=== PATIENT | female | born 1995 | race Caucasian/White ===

== ENCOUNTER 2018-10-02 09:42 | Emergency (ER) | payer OTHER ==
[~2018-10-02] VITALS: Ht 165.1 cm; Wt 104.5 kg
[~2018-10-02 09:42] MED LIST: FER325 PO; PRENAT PO
[2018-10-02 10:06] VITALS: BP 125/57; PULSE 75; RESP 16; Ht 165.1 cm; Wt 104.5 kg
[2018-10-02] MEDS ORDERED: LORAZEPAM 1 MG TAB PO ONE (11:30)
--- NOTE | 2018-10-02 15:00 | ERD ---
ER Documentation Chief Complaint Chief Complaint INTERMITTENT TINGLING BACK OF HEAD, DIZZINESS, BLURRED VISION, FREQUENT [place] HPI 23-year-old female patient with no significant past medical history with no significant past medical history presents to ED complaining of a tingling sensation in the back of her head, dizziness, intermittent blurred vision, headaches that were gradual onset since March. Denies any head or neck injuries. Denies any fever, chills, nausea, vomiting, diarrhea, neck stiffness. ROS All systems reviewed and are negative except as per history of present illness. Medications Home Meds Reported Medications Ferrous Sulfate* (Ferrous Sulfate*) 325 Mg Tabec, 325 MG PO DAILY, TAB 06/04/14 Multivit/Min/Fol Ac/Iron/Pren* ( S*) 1 Tab Tab, 1 TAB PO DAILY, TAB 05/19/14 Allergies Allergies: Coded Allergies: No Known Allergy (Unverified , 10/02/18) PMhx/Soc Medical and Surgical Hx: pt denies Medical Hx, pt denies Surgical Hx Hx Alcohol Use: No Hx Substance Use: No Hx Tobacco Use: No Smoking Status: Never smoker FmHx Family History: No diabetes, No coronary disease, No other Physical Exam Vitals Vital Signs Date Temp Pulse Resp B/P (MAP) Pulse Ox O2 O2 Flow FiO2 Time Delivery Rate 10/02/18 98.1 75 16 125/57 98 10:06 (79) Physical Exam Const: Vhl-oog-wekuwvrpf, well-nourished. In no acute distress. Head: Atraumatic, normocephalic. No hematoma. No davidson sign. Eyes: Normal Conjunctiva without injection. No purulent discharge. PERRLA. EOMI ENT: Normal external ear. Ear canal without erythema. Tympanic membrane pearly jiménez without effusion or bulging. No hemotympanum. Nasal canal clear with normal turbinates. Moist oropharynx without tonsillar exudates. Non-erythematous pharynx. Uvula midline. No drooling. No trismus. Neck: No cervical midline tenderness. Full range of motion. No meningismus. No cervical lymphadenopathy. No JVD. Resp: Clear to auscultation bilaterally. No wheezing, rhonchi, rales, or crackles. No accessory muscle use. No retractions. Cardio: Regular rate and rhythm. No murmurs, rubs or gallops. Abd: Soft, non tender, non distended. Normal bowel sounds. No palpable masses. No rebound tenderness. No guarding. Negative McBurney's Point. Negative Cox's Sign. Skin: Normal skin turgor. No petechiae or rashes Back: No midline tenderness. No CVA tenderness. Ext: No cyanosis, or edema. Distal pulses intact bilaterally. Neur: Awake and alert. Normal gait. Normal coordination. Cranial Nerves II- VII intact. Normal finger to nose. Muscle strength 5/5. Sensation intact. Psych: Normal Mood and Affect Results 24 hrs Laboratory Tests Test 10/02/18 11:38 10/02/18 11:39 10/02/18 11:46 Bedside Urine pH (LAB) 6.5 Bedside Urine Protein (LAB) Negative Bedside Urine Glucose (UA) Negative Bedside Urine Ketones (LAB) Negative Bedside Urine Blood 2+ Bedside Urine Nitrite (LAB) Negative Bedside Urine Leukocyte Esterase (L Negative POC Beta HCG, Qualitative NEGATIVE Bedside Glucose 117 mg/dL Current Medications Medications Dose Sig/Tanesha Start Time Status Last (Trade) Ordered Route PRN Stop Time Admin Dose Reason Admin Lorazepam 1 mg ONCE ONCE 10/02/18 DC (Ativan) PO 11:30 10/02/18 11:31 Procedures/MDM 23-year-old female patient with no significant past medical history presents the ED complaining of numbness and tingling in the back of her head, dizziness, intermittent blurred vision, headaches. Patient is afebrile and nontoxic- appearing. 117 Accucheck. Negative urine . No Leukocyte esterase, hematuria, nitrite noted. EKG reviewed and interpreted by Dr. Van Rate/Rhythm: [69 bpm, Normal Sinus Rhythm] No ectopy, no ST elevations, normal axis. QRS, ST, T-waves: [No changes consistent w/ acute ischemia] Impression: [No evidence of ischemia or arrhythmia] Visual acuity 20/50 left 20/40 right bilateral 20/40 Differentials include anxiety. Low suspicion for shingles, acute myocardial infarction, pneumothorax, pneumonia, cardiac tamponade, Tcmdc-Ucwcrteki-Onurh Syndrome, Brugada Syndrome, pulmonary embolism, AAA, aortic dissection, thoracic aortic dissection, endocarditis, myocarditis, pericarditis, cocaine-related ischemia, Boerhaave's syndrome, cardiac dysrhythmias,meningitis, intracranial bleed, seizure, stroke, TIA or other emergent conditions. CT was discussed with the patient, she stated that she will follow-up with her primary care physician for a neurology follow-up. Low suspicion for intra cranial bleed, subarachnoid hemorrhage, meningitis, TIA, stroke, subdural hematoma epidural hematoma, or other emergent conditions. Diagnosis: Dizziness, Headache Discharge medications: Ferrous sulfate Instructed parent to bring patient to follow up with contracting analyst in 1-2 days. Instructed parent to bring patient back to the ED sooner for any worsening symptoms. Parent's questions were answered. Parent understood and agreed with discharge plan. Patient discharged stable. Disclaimer: Inadvertent spelling and grammatical errors are likely due to EHR/dictation software use and do not reflect on the overall quality of patient care. Also, please note that the electronic time recorded on this note does not necessarily reflect the actual time of the patient encounter. Departure Diagnosis: Primary Impression: Dizziness Additional Impression: Headache Headache type: unspecified Headache chronicity pattern: unspecified pattern Intractability: not intractable Qualified Codes: R51 - Headache Condition: Stable Patient Instructions: Dizziness, Unk Cause, Headache, Unspecified Referrals: [facility] YOU HAVE RECEIVED A MEDICAL SCREENING EXAM AND THE RESULTS INDICATE THAT YOU DO NOT HAVE A CONDITION THAT REQUIRES URGENT TREATMENT IN THE EMERGENCY DEPARTMENT. FURTHER EVALUATION AND TREATMENT OF YOUR CONDITION CAN WAIT UNTIL YOU ARE SEEN IN YOUR DOCTORS OFFICE WITHIN THE NEXT 1-2 DAYS. IT IS YOUR RESPONSIBILITY TO MAKE AN APPOINTMENT FOR FOLOW-UP CARE. IF YOU HAVE A PRIMARY DOCTOR --you should call your primary doctor and schedule an appointment IF YOU DO NOT HAVE A PRIMARY DOCTOR YOU CAN CALL OUR PHYSICIAN REFERRAL HOTLINE AT IF YOU CAN NOT AFFORD TO SEE A PHYSICIAN YOU CAN CHOSE FROM THE FOLLOWING [facility] [address] [facility] [address] [facility]. [facility] [address] [facility] [address] [facility] [address] [facility]. [facility]. [address] [facility] [facility] YOU HAVE RECEIVED A MEDICAL SCREENING EXAM AND THE RESULTS INDICATE THAT YOU DO NOT HAVE A CONDITION THAT REQUIRES URGENT TREATMENT IN THE EMERGENCY DEPARTMENT. FURTHER EVALUATION AND TREATMENT OF YOUR CONDITION CAN WAIT UNTIL YOU ARE SEEN IN YOUR DOCTORS OFFICE WITHIN THE NEXT 1-2 DAYS. IT IS YOUR RESPONSIBILITY TO MA KE AN APPOINTMENT FOR FOLOW-UP CARE. IF YOU HAVE A PRIMARY DOCTOR --you should call your primary doctor and schedule and appointment IF YOU DO NOT HAVE A PRIMARY DOCTOR YOU CAN CALL OUR PHYSICIAN REFERRAL HOTLINE AT . IF YOU CAN NOT AFFORD TO SEE A PHYSICIAN YOU CAN CHOSE FROM THE FOLLOWING COMMUNITY [facility]ALTH INSTITUTIONS: [facility] [address] [place] [address] [facility] [address] [place] [address] [facility] + [facility] [address] [place] [address] [facility]RGENT [facility]/SPECIALTIES Additional Instructions: Call your primary care doctor TOMORROW for an appointment during the next 2-3 days.See the doctor sooner or return here if your condition worsens before your appointment time. JAMI CRAWLEY PA-C October 02, 2018 15:00
--- NOTE | 2018-10-04 14:45 | RADRPT ---
Vent Rate: 69 bpm RR Interval: 0 msec [place] Interval: 152 msec QRS Duration: 76 msec QT Interval: 400 msec QTC Interval: 428 msec P-R-T Carson: 67 - 54 - 48 degrees Normal sinus rhythm Junctional ST depression, probably normal Borderline ECG Electronically Signed By: [facility]
== END 2018-10-02 19:04 | disposition home or self-care (01) ==
LOC: FTE 09:42
DX: R51 Headache (principal)
CPT/HCPCS: 81003; 81025; 82962; 93005; Z7502